=== PATIENT | female | born 1980 | race Native Hawaiian/Other Pacific Islander ===

== ENCOUNTER 2016-09-23 08:11 | Inpatient (IN) | payer OTHER ==
[2016-09-23] MEDS ORDERED: cefOXitin IV 2 gm in Dextrose 2 GM/50 ML BAG IVPB ONE ×2 (08:39→10:32)
[2016-09-23] MEDS ORDERED: Sodium Citrate/Citric Acid 15 ml Sol PO ONE (08:39)
[2016-09-23 08:45] VITALS: BMI 23.9
[2016-09-23] MEDS ORDERED: Lactated Ringer's 1,000 ML IV SCH (08:45)
--- NOTE | 2016-09-23 08:47 | OBADHP ---
Datetime: 09/23/2016 08:42 Admit Comment, IP Provider: chief complaint-leaking of fluid HPI 36 y/o at 38.6 wga with c/o leaking of fluid since 7 am and feeling some contractions course [place] PMH denies PSH csectionx1 Social hx denies tobacco, alcohol or illicit drug use Exam see exam section A/P 36 y/o at 38.6 wga with PROM.early labor -see orders Dr Juvenal rizo Pelvic Type - PN: Adequate Extremities - PN: Normal Abdomen - PN: Normal Back - PN: Normal Lungs - PN: Normal Heart - PN: Normal Neurologic - PN: Normal General - PN: Normal Weight - Estimated: 3200 Presentation-Admit: Vertex Membranes, Provider: Ruptured Contraction Comments Provider: irregular Gestation - Est Wks by US: 38.6 Pool Provider: Positive Nitrazine Provider: Positive Ferning Provider: Positive IP Hx Assessment: The History has been Reviewed and is Current Vital Signs Provider: Reviewed; Within Normal Limits IP Chief Complaint: Suspected ruptured membranes FHR Category Provider Fetus A: Category I Dilatation, Provider: 1 Genitourinary Exam: Normal DTRs - PN: Normal EGA AdmitDate IP: 38.6 IP Adm Impression: Term, intrauterine ; Ruptured Membranes IP Admit Plan: Admit to unit; Initiate Section protocol
[2016-09-23 09:31] LABS: BASO % 0.5 % (0.0-2.0); EOS % 0.4 % (0.0-4.0); HEMATOCRIT 30.6 % (34.0-47.0); LYMPH # 2.3 K/uL (1.0-4.3); LYMPH % 28.6 % (20.0-40.0); MEAN CORPUSCULAR HEMOGLOBIN 20.5 pg (27.0-31.0); MEAN CORPUSCULAR HGB CONC 31.1 g/dL (33.0-37.0); MEAN PLATELET VOLUME 7.8 fL (7.2-11.7); MONO # 0.5 K/uL (0.0-0.8); MONO % 6.3 % (0.0-10.0); NRBC % 0.1 % (0.0-2.0); RED CELL DISTRIBUTION WIDTH 22.7 % (11.5-14.5); WHITE BLOOD COUNT 7.9 K/uL (4.8-10.8)
[2016-09-23 09:32] LABS: MEAN CELL VOLUME 65.7 fL (81.0-99.0)
[2016-09-23 10:04] LABS: CHLORIDE 104 mmol/L (98-107)
[2016-09-23 10:05] LABS: POTASSIUM 3.6 mmol/L (3.6-5.2); SODIUM 134 mmol/L (132-148)
[2016-09-23 10:07] LABS: GFR AFRICAN-AMERICAN > 60
[2016-09-23 10:08] LABS: ALKALINE PHOSPHATASE 147 U/L (38-126); ALT/SGPT 18 U/L (9-52); AST/SGOT 23 U/L (14-36); BILIRUBIN,TOTAL 0.8 mg/dL (0.2-1.3); BLOOD UREA NITROGEN 6 mg/dL (7-17); CALCIUM 8.5 mg/dl (8.6-10.4); CARBON DIOXIDE 18 mmol/L (22-30); GLUCOSE,RANDOM 75 mg/dL (65-105); TOTAL PROTEIN 6.9 g/dL (6.3-8.3)
[2016-09-23] MEDS ORDERED: Oxytocin 20 units in LR 2,000 ML IV ONE (10:16)
[2016-09-23] MEDS ORDERED: Sodium Citrate/Citric Acid 15 ml Sol ONE (10:32)
[2016-09-23] MEDS ORDERED: Phenylephrine 10 mg/ml Inj ONE (10:59)
[2016-09-23] MEDS ORDERED: Morphine 1 mg/ml preservative-free Inj(Duramorph) ONE (10:59)
--- NOTE | 2016-09-23 14:28 | OBDS ---
DELIVERY PERSONNEL Delivery Doctor: Elly Sanford MD Fiscal Manager: Ryan Griffin RN Anesthesiologist: PHIL Resident: DR LOU MATERNAL INFORMATION Delivery Anesthesia: Spinal Provider Comments: live female uterine winwon normal appearing utuers, tubes and ovaries bilaterllyl live femlae infant apargs 9, 9 weight 7lbs, nuchal cord x 1 reduced. bass mechanism maker present at [facility] 800ml no complicatins LABOR SUMMARY EDC: 10/01/2016 00:00 LABOR INFORMATION Group B Beta Strep: Negative MEMBRANES Membranes Rupture Method: Spontaneous Rupture of Membranes: 09/23/2016 07:00 Length of Rupture (hrs): 6.92 Amniotic Fluid Color: Clear Amniotic Fluid Amount: Scant Amniotic Fluid Odor: Normal STAGES OF LABOR Stage 3 hrs: 0 Stage 3 min: 1 BABY A INFORMATION Infant Delivery Date/Time: 09/23/2016 13:55 Method of Delivery: Born in Route : No : N/A Forceps: N/A Vacuum Extraction: Successful Shoulder Dystocia : No SHOULDER DYSTOCIA BABY A Infant Delivery Date/Time: 09/23/2016 13:55 PRESENTATION/POSITION BABY A Presentation: Cephalic Cephalic Presentation: Vertex Vertex Position: Left Occipital Posterior Breech Presentation: N/A PLACENTA INFORMATION BABY A Placenta Delivery Time : 09/23/2016 13:56 Placenta Method of Delivery: Manual Removal Placenta Status: Delivered SCORES BABY A Heart Rate 1 min: >100 bpm Resp Effort 1 min: Good Cry Reflex Irritability 1 min: Cough or Sneeze or Pulls Away Muscle Tone 1 min: Active Motion Color 1 min: Body Obion, Extremities Blue SCORE 1 MIN: 9 Heart Rate 5 min: >100 bpm Resp Effort 5 min: Good Cry Reflex Irritability 5 min: Cough or Sneeze or Pulls Away Muscle Tone 5 min: Active Motion Color 5 min: Body Obion, Extremities Blue SCORE 5 MIN: 9 INFORMATION BABY A Gestational Age at Delivery: 38.6 Gestational Status: Term Outcome : Liveborn Condition : Stable Infant Sex: Female WEIGHT/LENGTH BABY A Birthweight (gms): 3180 Infant Weight (lb): 7 Infant Weight (oz): 0 Infant Length Inches: 19.50 Length cms: 49.5 CORD INFORMATION BABY A No. Cord Vessels: 3 Cord Blood Taken: Yes ASSESSMENT BABY A Infant Complications: None Physical Findings at Delivery: Within Normal Limits Respirations: Appears Normal Tow Motor Driver/ALS Called : Yes Care By: DR SINGLETARY Transferred To: Remains with Mother
[2016-09-23] MEDS ORDERED: Oxycodone/Acetaminophen 5/325 mg Tab PO PRN ×2 (14:43)
[2016-09-23] MEDS: cefOXitin IV 2 gm in Dextrose 2 GM/50 ML BAG IVPB SCH (18:15)
--- NOTE | 2016-09-23 23:03 | PCM.SURG1 ---
Surgeon's Initial Post Op Note - Surgeon's Notes Surgeon: Estrella Sanford MD [employer] Sales Representative: Cliff Calderón mD Type of Anesthesia: Spinal Pre-Operative Diagnosis: Term intrauterine , PROM, armando with previous ceseareansection in early labor, Operative Findings: thin lower uterine segment with uterine window, live female infatn nuchal cord x 1 reduced, apgars 9, 9 weight of 7 pouinds,n ormal appearing uteurs tubes and ovareis bilaterlally. assistant education director prsent for deliveyr. Maeve [address] Clifford Calderón was operating room surgical technologist and essential in gaining entry retraction expsoure holding bladder balded , delivery baby and clsoing all layers and obtainign hemostaisis. Post-Operative Diagnosis: same as above Operation Performed: Repeat Low Transveres Cesearean section Specimen/Specimens Removed: palcenta Estimated Blood Loss: EBL {In ML}: 800 Blood Products Given: N/A Post-Op Condition: Good Date of Surgery/Procedure: 09/23/16 Time of Surgery/Procedure: 12:00
[2016-09-24] MEDS: cefOXitin IV 2 gm in Dextrose 2 GM/50 ML BAG IVPB SCH ×2 (02:36→10:32)
[2016-09-24 07:58] LABS: BASO # 0.1 K/uL (0.0-0.2); BASO % 0.5 % (0.0-2.0); EOS # 0.1 K/uL (0.0-0.7); EOS % 0.5 % (0.0-4.0); HEMATOCRIT 31.4 % (34.0-47.0); LYMPH # 1.7 K/uL (1.0-4.3); LYMPH % 15.1 % (20.0-40.0); MEAN CELL VOLUME 66.3 fL (81.0-99.0); MEAN CORPUSCULAR HEMOGLOBIN 20.1 pg (27.0-31.0); MEAN CORPUSCULAR HGB CONC 30.4 g/dL (33.0-37.0); MEAN PLATELET VOLUME 7.9 fL (7.2-11.7); MONO # 0.4 K/uL (0.0-0.8); MONO % 3.8 % (0.0-10.0); NRBC % 0.1 % (0.0-2.0); RED CELL DISTRIBUTION WIDTH 22.7 % (11.5-14.5); WHITE BLOOD COUNT 11.5 K/uL (4.8-10.8)
[2016-09-24 08:53] VITALS: RESP 18
--- NOTE | 2016-09-24 10:10 | OP ---
PROCEDURE DATE: 09/23/2016 SURGEON: Dr. Estrella Sanford. BLUEPRINTER: Dr. Cliff Calderón. PREOPERATIVE DIAGNOSES: Term intrauterine , premature rupture of membranes, armando wit h previous section in early labor. OPERATIVE FINDINGS: Thin lower uterine segment with uterine window, live female infant, nuchal cord x 1 reduced. Apgars 9 and 9, weight of 7 pounds. Normal appearing uterus, tubes, and ovaries bilate rally. Plow And Boring Machine Tender present for delivery. ESTIMATED BLOOD LOSS: [address] Cliff Calderón was the registrar assistant, essential in gaining entry, retraction, exposure, holdi ng the bladder blade, delivering the baby, closing all layers and obtaining hemostasis. POSTOPERATIVE DIAGNOSES: Term intrauterine , premature rupture of membranes, armando wi th previous section in early labor. PROCEDURE PERFORMED: Repeat low transverse section. ESTIMATED BLOOD LOSS: 800 mL. SPECIMEN: Placenta. ANESTHESIA: Spinal. COMPLICATIONS: None. DESCRIPTION OF PROCEDURE: The patient was taken to the operating room where she was given spinal ane sthesia. Once found to be adequate, she was placed on the operating table in dorsal supine position. The patient then prepped and draped in the usual normal sterile fashion. A timeout was performed, confirmed correct patient and correct procedure. The patient was given preoperative prophylactic ant ibiotics. A Pfannenstiel skin incision was made through the existing incision carried in line to the underlying fascia with the Bovie. The fascia was incised in midline and incision was extended later ally with the Bovie. The inferior aspect of the fascial incision was grasped with Virginia clamps and the underlying rectus muscles were resected off bluntly. Attention was then turned to the superior a spect of the fascial incision, was grasped, elevated with Virginia clamps and the underlying rectus mus cles were dissected off bluntly. The rectus muscles were then bluntly in the midline and t he peritoneum identified, and a clear space entered laterally and superiorly until there was good vis ualization of the bladder. The lower end of the [place] was then inserted and the lower uterine segm ent appeared to be very thin and there was a uterine window was noted in which baby was seen. The ve sicouterine peritoneum was incised with the Metzenbaum scissors. The bladder flap and incision exten ded laterally. The bladder flap was created digitally. The lower end of the [place] was then insert ed and the lower uterine segment was incised in a transverse fashion. The surgeon's hand entered the uterine cavity and the infant's head was delivered atraumatically. There was a nuchal cord x 1 that was reduced, followed by atraumatic delivery anterior and posterior shoulders, followed by delivery of the body. Both oral and nasal passages of the baby were bulb suctioned, umbilical cord was clampe d and handed off to waiting afternoon babysitter. Cord blood and cord gases were collected and sent x 2. Th e placenta was then delivered manually. The uterus was exteriorized and cleared of all clots and mira ris. The uterine incision was repaired with 0 Vicryl in running continuous locked fashion. A second layer of the same suture was used to close the uterus in a running imbricated manner. There was goo d hemostasis noted at the uterine incision site and there were normal tubes and ovaries. The uterus was then returned to the abdomen and the paracolic gutters were cleared of all clots and debris. The peritoneum was reapproximated and closed with 2-0 chromic in a continuous manner. Rectus was reappr oximated and closed with 2-0 chromic in interrupted manner. The fascia was reapproximated and closed with 0 Vicryl in running continuous fashion. Subcutaneous space was closed with 2-0 plain in an int errupted manner and the skin was reapproximated and closed with 4-0 Monocryl in a subcuticular runnin g continuous fashion. At the end of the procedure, all needle, sponge and instrument counts were not ed to be correct x 2. The patient tolerated the procedure well and was transferred to recovery room in stable condition. Estrella Sanford MD cc: [id number] TT: 09/24/2016 10:09:58 star
[2016-09-24] MEDS: Simethicone 80 mg Chewtab PO SCH ×4 (10:31→21:29)
[2016-09-24] MEDS: Prenatal Multivit/Folic Acid/Iron Tab PO SCH (10:31)
--- NOTE | 2016-09-24 11:00 | OBDCSUM ---
Datetime: 09/24/2016 10:58 Discharged to, Provider: Home Follow up at, Provider: Dr Sanford Disch Instr Activity: Normal activity Disch Instr Diet: Regular Discharge Instructions, Provider: Routine instructions given Discharge Diagnosis, Provider: Term Delivered Discharge Time: 09/25/2016 09:00 Follow up in weeks, Provider: Letitia Sorto 2016 Disch Referrals: None Contraception discussed, Prov: Yes Disch Activity Restrictions: No exercising; No lifting; No sexual activity; Nothing in vagina - Inte rcourse, tampons, douche Discharge Comment, Provider: f/u Dr Sanford no heavy lifitng more than 5 poudns x 6 weeks precuatins given dc/ in am Contraception after Delivery: Not Planning to Use
--- NOTE | 2016-09-24 11:00 | OBPPN ---
Datetime: 09/24/2016 10:57 PP Pain Prov: Within normal limits PP Nausea Prov: Denies PP Flatus Prov: No PP BM Prov: No PP Breasts Prov: Normal PP Heart Prov: Normal PP Lungs Prov: Normal PP Abdomen/Uterus Prov: Normal PP Lochia Prov: Normal PP Vulva/Perineum Prov: Normal PP CVA Tenderness Prov: Normal PP Extremities Prov: Normal PP C/S Incision Prov: Not Applicable PP Progress Prov: Normal PP Comments Phys Exam Prov: Breast non tender, non engorged b/l Ad; soft, nt, nd incsion c/d/i no vaginal bleeding fundu firm, below level of umbilcus ext no calf tenderns b/l PP Impression Prov: Normal progression PP Plan Prov: Continue present management PP Progress Note Prov: pt seen adn examined, sittign in chair, reports pain is controlled. pt denies any fevers, chills, nause, vomiting, tolerating liquid diet. pt deie any vaginal bleeding . pt is b rest feeding. IP PP Procedures: None Vital Signs Provider PP: Reviewed; Within Normal Limits
[2016-09-24 16:19] VITALS: O2SAT 98
[2016-09-25 07:53] VITALS: BP 99/61; PULSE 96; TEMP 98.4
[2016-09-25] MEDS: Prenatal Multivit/Folic Acid/Iron Tab PO SCH (10:06)
[2016-09-25] MEDS: Simethicone 80 mg Chewtab PO SCH (10:07)
--- NOTE | 2016-09-25 10:14 | CP.PCM.PN ---
Subjective - Date & Time of Evaluation Date of Evaluation: 09/25/16 Time of Evaluation: 10:00 - Subjective Subjective: pt doing well with no complaints. Pt reports passing gas but not bowel movment. Pt toleratingregulr diet. pt ambuating, voiding, requesting discharge today. Objective - Vital Signs/Intake and Output Vital Signs (last 24 hours): Temp Pulse Resp BP Pulse Ox 98.4 F 96 H 18 99/61 L 98 09/25/16 07:53 09/25/16 07:53 09/25/16 07:53 09/25/16 07:53 09/25/16 07:53 - Medications Medications: Current Medications Docusate Sodium (Colace) 100 mg PO BID [facility] Last Admin: 09/25/16 10:07 Dose: 100 mg Ferrous Sulfate (Feosol) 325 mg PO DAILY [facility] Last Admin: 09/25/16 10:07 Dose: 325 mg Lactated Ringer's (Lactated Ringer's) 1,000 mls @ 125 mls/hr IV .Q8H [facility] Last Admin: 09/24/16 00:22 Dose: 125 mls/hr Oxytocin (Pitocin 20 Units In Lr) 1,000 mls @ 125 mls/hr IV .Q8H [facility] PRN Reason: Protocol Ibuprofen (Motrin Tab) 600 mg PO Q6 PRN PRN Reason: Pain, Mild (1-3) Last Admin: 09/24/16 14:31 Dose: 600 mg Oxycodone/Acetaminophen (Percocet 5/325 Mg Tab) 1 tab PO Q4H PRN PRN Reason: Pain, moderate (4-7) Stop: 09/26/16 14:44 Oxycodone/Acetaminophen (Percocet 5/325 Mg Tab) 2 tab PO Q4H PRN PRN Reason: Pain, severe (8-10) Stop: 09/26/16 14:44 Last Admin: 09/24/16 21:29 Dose: 2 tab Multivit/Folic Acid/Iron () 1 tab PO DAILY [facility] Last Admin: 09/25/16 10:06 Dose: 1 tab Simethicone (Mylicon Chew Tab) 80 mg PO QID [facility] Last Admin: 09/25/16 10:07 Dose: 80 mg - Labs Labs: 09/24/16 07:38 09/23/16 09:17 - Constitutional Appears: Well, Non-toxic - Eye Exam Eye Exam: EOMI, PERRL Pupil Exam: NORMAL ACCOMODATION - ENT Exam ENT Exam: Mucous Membranes Moist, Normal Exam - Neck Exam Neck Exam: Normal Inspection - Respiratory Exam Respiratory Exam: Clear to Ausculation Bilateral, Respiratory Distress, NORMAL BREATHING PATTERN - Cardiovascular Exam Cardiovascular Exam: REGULAR RHYTHM, +S1, +S2 - GI/Abdominal Exam GI & Abdominal Exam: Soft, Normal Bowel Sounds Additional comments: non tender, non distend, no guarding, no rebound tendenress, no rigidity fundus; firm, below level of umbicius no vaginal bleeding incsion c/d/i - Extremities Exam Extremities Exam: Full ROM, Normal Capillary Refill, Normal Inspection Additional comments: negative joo's sign Assessment and Plan (1) Status post delivery Assessment & Plan: 1. Pain Managment: percocet/motrin 2. encurage ambuatin/ breast feeding 3. regular diet 4. Bowel regimen: simethicone, milk of magnesia 5. Anticipate d/c today 6. RTO 1 week, precautions given 7. DELIA: continue PO Iron daily, advsied iron rich diet. Status: Acute
== END 2016-09-25 15:05 | disposition home or self-care (01) | DRG 766 ==
LOC: C.EROB 08:11 → C.4D 08:38 → C.4M 17:00
PROVIDERS: ADMIT Obstetrics & Gynecology; ATTEND Obstetrics & Gynecology
PROC: 10D00Z1 Extraction of Products of Conception, Low, Open Approach (ICD-10-PCS; principal; 2016-09-23)
DX: O69.81X0 Labor and delivery complicated by cord around neck, without compression, not applicable or unspecified (principal); O42.92 Full-term premature rupture of membranes, unspecified as to length of time between rupture and onset of labor; O09.523 Supervision of elderly multigravida, third trimester; Z37.0 Single live birth; Z3A.38 38 weeks gestation of pregnancy